=== PATIENT | female | born 1975 | race Hispanic/Latino ===

== ENCOUNTER 2021-03-04 10:53 | Observation (INO) | payer OTHER ==
[2021-03-02 11:23] LABS: BASOPHILS # (AUTO) 0.1 (0.0-0.1); BASOPHILS % 0.5 % (0.0-1.0); EOSINOPHILS % 0.4 % (0.0-6.0); HEMATOCRIT 41.2 % (34.2-44.1); LYMPHOCYTES # (AUTO) 1.6 (1.0-3.2); MEAN CORPUSCULAR HGB CONC 31.6 g/dL (31-35); MEAN CORPUSCULAR VOLUME 88.6 fL (81-99); MONOCYTES # (AUTO) 0.4 (0.2-0.8); MONOCYTES % 4.4 % (4.4-11.3); NEUTROPHILS # (AUTO) 7.3 (2.1-6.9); NEUTROPHILS % 77.5 % (38.7-80.0); PLATELET COUNT 326 x10e3/uL (140-360); RED BLOOD COUNT 4.65 x10e6/uL (3.6-5.1); RED CELL DISTRIBUTION WIDTH 14.2 % (11.7-14.4)
[2021-03-02 12:13] LABS: CLARITY,URINE CLEAR (CLEAR); COLOR,URINE YELLOW (YELLOW); KETONES,URINE NEGATIVE (NEGATIVE); LEUKOCYTE ESTERASE ,URINE NEGATIVE (NEGATIVE); NITRITE,URINE NEGATIVE (NEGATIVE); PROTEIN,URINE DIPSTICK NEGATIVE (NEGATIVE); URINE UROBILINOGEN 0.2 mg/dL (0.2 - 1)
[2021-03-02 12:15] LABS: ANION GAP 15.7 mmol/L (8-16); BLOOD UREA NITROGEN 8 mg/dL (7-26); BUN/CREATININE RATIO 11 (6-25); CALCIUM 9.1 mg/dL (8.4-10.2); CARBON DIOXIDE 22 mmol/L (22-29); CHLORIDE 106 mmol/L (98-107); EST GLOMERULAR FILTRATION RATE 90 ML/MIN (60-); GLUCOSE 76 mg/dL (74-118); POTASSIUM 3.7 mmol/L (3.5-5.1); SODIUM 140 mmol/L (136-145)
[~2021-03-04] VITALS: Ht 154.9 cm; Wt 72.6 kg
[~2021-03-04 10:53] MED LIST: ZETIA10 MG PO
[2021-03-04] MEDS ORDERED: BUPIVACAINE 0.25% 30ML SDV ONE (12:50)
[2021-03-04] MEDS ORDERED: LIDOCAINE 1% W/EPINEPHRINE 20 ML VIAL ONE (12:50)
[2021-03-04] MEDS ORDERED: ACETAMINOPHEN 1000 MG/100 ML 100 ML IV ONE (13:14)
[2021-03-04] MEDS ORDERED: HYDROMORPHONE 2MG/ML 2 MG/ML ML ONE (13:14)
[2021-03-04] MEDS ORDERED: SUGAMMADEX SODIUM 200 MG/2 ML VIAL IV ONE (16:22)
[2021-03-04] MEDS ORDERED: ACETAMINOPHEN 325 MG TAB PO PRN (17:00)
[2021-03-04] MEDS ORDERED: SIMETHICONE 80 MG CHEW PO PRN (17:00)
[2021-03-04] MEDS ORDERED: ONDANSETRON HCL INJ 2MG/ML 2ML 2 MG/ML VIAL IV PRN (17:00)
[2021-03-04] MEDS ORDERED: BISACODYL 10 MG SUPP PR PRN (17:00)
[2021-03-04] MEDS ORDERED: KETOROLAC TROMETHAMINE 30 MG/ML VIAL IV PRN (17:00)
[2021-03-04] MEDS ORDERED: DOCUSATE SODIUM 100 MG CAP PO PRN (17:00)
[2021-03-04] MEDS ORDERED: FENTANYL CITRATE/PF 100MCG/2 ML INJ ONE (17:02)
[2021-03-04] MEDS ORDERED: HYDROMORPHONE 1MG/1ML INJ ONE (17:28)
[2021-03-04 19:20] VITALS: BP 144/80
[2021-03-04] MEDS: D5.45%NS/KCL 20MEQ 1,000 ML IV SCH (19:28)
[2021-03-04 20:00] VITALS: BP 138/75
[2021-03-04] MEDS ORDERED: EZETIMIBE 10 MG TAB PO SCH (21:00)
[2021-03-04 21:48] VITALS: BP 138/75
[2021-03-04] MEDS: MORPHINE SULFATE INJ 4 MG/ML INJ 1ML IV PRN (23:17)
[2021-03-04 23:56] VITALS: BP 132/73
[2021-03-05] MEDS: D5.45%NS/KCL 20MEQ 1,000 ML IV SCH ×2 (03:24→10:45)
[2021-03-05] MEDS: MORPHINE SULFATE INJ 4 MG/ML INJ 1ML IV PRN ×2 (03:24→08:55)
[2021-03-05 04:00] VITALS: BP 114/62
[2021-03-05 06:08] LABS: BASOPHILS % 0.2 % (0.0-1.0); HEMATOCRIT 38.1 % (34.2-44.1); HEMOGLOBIN 12.2 g/dL (12.0-16.0); LYMPHOCYTES # (AUTO) 1.4 (1.0-3.2); LYMPHOCYTES % 10.2 % (18.0-39.1); MEAN CORPUSCULAR HEMOGLOBIN 27.7 pg (28-32); MEAN CORPUSCULAR VOLUME 86.4 fL (81-99); MONOCYTES # (AUTO) 1.1 (0.2-0.8); MONOCYTES % 8.2 % (4.4-11.3); NEUTROPHILS # (AUTO) 10.8 (2.1-6.9); NEUTROPHILS % 81.1 % (38.7-80.0); PLATELET COUNT 351 x10e3/uL (140-360); RED BLOOD COUNT 4.41 x10e6/uL (3.6-5.1); RED CELL DISTRIBUTION WIDTH 14.3 % (11.7-14.4)
[2021-03-05 06:29] LABS: ANION GAP 17.1 mmol/L (8-16); CALCIUM 8.6 mg/dL (8.4-10.2); CREATININE, SERUM 0.76 mg/dL (0.57-1.11); POTASSIUM 4.1 mmol/L (3.5-5.1)
[2021-03-05 07:48] VITALS: BP 120/63
[2021-03-05 08:00] VITALS: BP 120/63
[2021-03-05 09:44] VITALS: BP 120/63
[2021-03-05 11:52] VITALS: BP 120/64
[2021-03-05] MEDS ORDERED: MOTRIN200 MG PO (13:27)
== END 2021-03-05 14:45 | disposition home or self-care (01) ==
LOC: OR 10:53 → INTOOBSV 17:00 → MED/SURG 17:00
PROVIDERS: ADMIT Obstetrics & Gynecology; ATTEND Obstetrics & Gynecology
DX: N93.9 Abnormal uterine and vaginal bleeding, unspecified (principal); D25.1 Intramural leiomyoma of uterus; D25.0 Submucous leiomyoma of uterus; D25.2 Subserosal leiomyoma of uterus; D64.9 Anemia, unspecified; E78.5 Hyperlipidemia, unspecified; N72 Inflammatory disease of cervix uteri; Z01.812 Encounter for preprocedural laboratory examination; Z20.822 Contact with and (suspected) exposure to COVID-19
CPT/HCPCS: 36415; 80048; 81003; 84702; 85025; 86850; 86900; 88307; G0378; J0690; J1170; J1885; J2270; J3010; J7050; U0002